=== PATIENT | male | born 1975 | race Caucasian/White ===

== ENCOUNTER 2019-02-15 00:21 | Emergency (ER) | payer MEDICAID ==
[~2019-02-15] VITALS: Ht 188 cm; Wt 114.0 kg
[2019-02-15] MEDS ORDERED: SODIUM CHLORIDE FLUSH 10ML SYR IVF ONE (01:00)
[2019-02-15] MEDS ORDERED: hydrALAzine 20 MG/ML, 1ML IV ONE (01:00)
[2019-02-15 01:07] LABS: BASOPHILS # (AUTO) 0.04 x10^3/uL (0-0.1); BASOPHILS % (AUTO) 1 % (0-1); EOSINOPHILS # (AUTO) 0.36 x10^3/uL (0-0.4); EOSINOPHILS % (AUTO) 5 % (1-7); LYMPHOCYTES # (AUTO) 2.42 x10^3/uL (1-3.4); LYMPHOCYTES % (AUTO) 31 % (22-44); MD NO; MEAN CORPUSCULAR HEMOGLOBIN 31.5 pg (27.5-34.5); MEAN CORPUSCULAR VOLUME 95.4 fL (81-97); MEAN PLATELET VOLUME 8.2 fL (7.4-10.4); MONOCYTES # (AUTO) 0.62 x10^3/uL (0.2-0.8); MONOCYTES % (AUTO) 8 % (2-9); NEUTROPHILS # (AUTO) 4.35 x10^3/uL (1.8-6.8); NEUTROPHILS % (AUTO) 56 % (42-75); PLATELET COUNT 182 x10^3/uL (130-400); RED BLOOD COUNT 4.55 x10^6/uL (4.38-5.82); RED CELL DISTRIBUTION WIDTH 13.8 % (9.4-14.8)
[2019-02-15 01:16] LABS: ALBUMIN 3.4 g/dL (3.4-5.0); ANION GAP 2 mmol/L (5-15); CALCIUM 8.8 mg/dL (8.5-10.1); CHLORIDE 107 mmol/L (98-107); CREATININE 0.93 mg/dL (0.7-1.3)
[2019-02-15 01:20] LABS: TROPONIN I < 0.015 ng/mL (0.000-0.045)
[2019-02-15] MEDS ORDERED: hydrALAzine 20 MG/ML, 1ML ONE (01:30)
--- NOTE | 2019-02-15 02:06 | NUR ---
REPORT GIVEN TO ISAK AT [place], PT STABLE FOR TRANSPORT BACK TO [place] WITH SITTER. AWAITING [facility] FOR TRANSPORT.
[2019-02-15 02:07] VITALS: BP 131/90
== END 2019-02-15 03:51 ==
LOC: ED 02:51
DX: I10 Essential (primary) hypertension (principal); R10.32 Left lower quadrant pain; R51 Headache; R07.89 Other chest pain
CPT/HCPCS: 36415; 80048; 82040; 84484; 85025; 93005; 96374; 99285; J0360